=== PATIENT | male | born 1990 | race Caucasian/White ===

== ENCOUNTER 2017-03-12 12:26 | Emergency (ER) | payer OTHER ==
[~2017-03-12] VITALS: Ht 165.1 cm; Wt 59.0 kg
[~2017-03-12 12:26] MED LIST: ALBU90OI INH; HYDACE5 PO; IBUP400 PO; PROM25 PO; RXONDA4ODT MM
[2017-03-12] MEDS ORDERED: Veetids 500500 MG PO (14:06)
== END 2017-03-12 14:35 | disposition home or self-care (01) ==
LOC: ER 12:26
DX: K02.9 Dental caries, unspecified (principal); K04.7 Periapical abscess without sinus; F17.200 Nicotine dependence, unspecified, uncomplicated; Z79.2 Long term (current) use of antibiotics
CPT/HCPCS: 99283

== ENCOUNTER 2023-10-03 17:14 | Emergency (ER) | payer OTHER ==
[~2023-10-03] VITALS: Ht 165.1 cm; Wt 70.3 kg
[~2023-10-03 17:14] MED LIST changes: +Veetids 500500 MG PO
[2023-10-03 18:43] LABS: Influenza A, PCR NEGATIVE (NEGATIVE); Influenza B, PCR NEGATIVE (NEGATIVE); Resp Syncytial Virus, PCR NEGATIVE (NEGATIVE); SARS-Cov-2 (COVID-19) PCR, MMC NEGATIVE (NEGATIVE)
[2023-10-03] MEDS ORDERED: IBUP800 PO (19:00)
[2023-10-03] MEDS ORDERED: BENZ100A PO (19:00)
[2023-10-03 19:08] VITALS: BP 115/77
== END 2023-10-03 19:08 | disposition home or self-care (01) ==
LOC: ER 17:14
PROVIDERS: Emergency Medicine
DX: B34.9 Viral infection, unspecified (principal); F17.200 Nicotine dependence, unspecified, uncomplicated; Z11.52 Encounter for screening for COVID-19
CPT/HCPCS: 0241U; 71046

== ENCOUNTER 2024-02-23 21:17 | Emergency (ER) | payer OTHER ==
[~2024-02-23] VITALS: Ht 172.7 cm; Wt 70.3 kg
[~2024-02-23 21:17] MED LIST changes: +BENZ100A PO; +IBUP800 PO
[2024-02-23] MEDS ORDERED: Lidocaine 4% 1 Patch TOP ONE (23:40)
[2024-02-23] MEDS ORDERED: Ondansetron 4 MG SoluTab SL ONE (23:45)
[2024-02-23] MEDS ORDERED: Ketorolac Tromethamine 15mg Vial IM ONE (23:45)
[2024-02-24] MEDS ORDERED: Prochlorperazine Maleate 5 MG Tab PO ONE (00:50)
[2024-02-24] MEDS ORDERED: DiphenhydrAMINE HCL 25 MG Cap PO ONE (00:50)
[2024-02-24 01:00] VITALS: BP 130/73
== END 2024-02-24 01:30 | disposition home or self-care (01) ==
LOC: ER 21:17
DX: M54.2 Cervicalgia (principal); F17.200 Nicotine dependence, unspecified, uncomplicated; V69.9XXA Occupant (driver) (passenger) of heavy transport vehicle injured in unspecified traffic accident, initial encounter; Y92.828 Other wilderness area as the place of occurrence of the external cause
CPT/HCPCS: 70450; 72125; 96374; 99285-25; A9270; J1885; Q0164